=== PATIENT | female | born 1975 | race Caucasian/White ===

== ENCOUNTER → 2018-02-23 08:59 | Outpatient (CLI) | payer OTHER, SELFPAY ==
[2018-02-23 11:01] LABS: HCT 36.3 % (36.0-46.0); Mean Corp. HGB Concentration 33.1 g/dL (32.0-36.0); Mean Corpuscular Hemoglobin 26.8 pg (27.0-33.0); Platelet Count 359 x1000/uL (130-400); RBC 4.48 m/cumm (4.00-5.20); RBC Distribution Width 15.5 % (11.7-14.6); White Blood Cell Count 8.11 k/cumm (4.4-10.8)
[2018-02-23 11:03] LABS: CREATININE 0.75 mg/dL (0.55-1.02); Potassium 4.2 mmol/L (3.5-5.1)
[2018-02-23 11:11] LABS: Hemoglobin A1C 7.2 % (4.5-6.2)
== END ==
PROVIDERS: PCP Family Medicine; Visit Provider Family Medicine
DX: D64.9 Anemia, unspecified (principal); I10 Essential (primary) hypertension
CPT/HCPCS: 36415; 85027; 82565; 83036; 84132

== ENCOUNTER 2018-04-06 00:57 | Outpatient (CLI) | payer OTHER, SELFPAY ==
--- NOTE | 2018-04-06 14:42 | DI.MRI_ITS ---
SYMPTOMS/DIAGNOSIS: CHRONIC HEADACHE, R51, ? IDIOPATHIC INTRACRANIAL HYPERTENSION MRI OF THE BRAIN: Comparison is made with March,. T2 sagittal, T1, T2, FLAIR diffusion axial and gradient-echo axial sequences were performed. No intracranial hemorrhage, mass or infarct is seen. The ventricles are normal in size. There are no abnormal high signal lesions in the white matter. The vascular flow voids appear intact. The orbits and pituitary are unremarkable. Mucus retention cyst is seen at the floor of the left maxillary sinus. IMPRESSION: Negative MRI of the brain.
== END 2018-04-06 01:17 ==
PROVIDERS: PCP Family Medicine; Visit Provider Nurse Practitioner Adult Health
DX: R51 Headache (principal)
CPT/HCPCS: 70551

== ENCOUNTER 2018-08-29 09:19 | Outpatient (CLI) | payer OTHER, SELFPAY ==
[2018-08-29 11:03] LABS: Hemoglobin A1C 7.6 % (4.5-6.2)
[2018-08-29 11:09] LABS: Alkaline Phosphatase 108 U/L (46-116)
== END 2018-08-29 09:39 ==
PROVIDERS: PCP Family Medicine; Visit Provider Family Medicine
DX: E11.9 Type 2 diabetes mellitus without complications (principal); K74.3 Primary biliary cirrhosis
CPT/HCPCS: 36415; 83036; 84075

== ENCOUNTER 2019-01-22 10:13 | Outpatient (CLI) | payer OTHER, SELFPAY ==
[2019-01-22 11:09] LABS: HCT 37.3 % (36.0-46.0); HGB 11.9 g/dL (12.0-15.5); Mean Corp. HGB Concentration 31.9 g/dL (32.0-36.0); Mean Corpuscular Hemoglobin 24.4 pg (27.0-33.0); Mean Corpuscular Volume 76.6 fL (80-95); Mean Platelet Volume 9.6 fL (8.0-11.0); Platelet Count 370 x1000/uL (130-400); RBC 4.87 m/cumm (4.00-5.20); RBC Distribution Width 17.3 % (11.7-14.6); White Blood Cell Count 6.23 k/cumm (4.4-10.8)
[2019-01-22 12:01] LABS: ALT 30 U/L (12-78); AST 15 U/L (15-37); Albumin 3.8 g/dL (3.4-5.0); Alkaline Phosphatase 168 U/L (46-116); Anion Gap 12.1 mmol/L (3-11); BUN 9 mg/dL (7-18); Bilirubin, Total 0.3 mg/dL (0.2-1.0); CO2 24.9 mmol/L (21.0-32.0); CREATININE 0.64 mg/dL (0.55-1.02); Calcium 8.9 mg/dL (8.5-10.1); Chloride 102 mmol/L (98-107); Glucose 133 mg/dL (70-100); Magnesium 1.8 mg/dL (1.8-2.4); Potassium 4.2 mmol/L (3.5-5.1); Sodium 139 mmol/L (136-145); TSH 1.48 uIU/mL (0.36-3.74)
== END 2019-01-22 10:33 ==
PROVIDERS: PCP Family Medicine; Visit Provider Family Medicine
DX: E11.9 Type 2 diabetes mellitus without complications (principal); I10 Essential (primary) hypertension
CPT/HCPCS: 36415; 80053; 85027; 83735; 84443

== ENCOUNTER 2019-03-20 09:46 | Outpatient (CLI) | payer OTHER, SELFPAY ==
[2019-03-20 12:36] LABS: HCT 37.4 % (36.0-46.0); HGB 11.8 g/dL (12.0-15.5); Mean Corp. HGB Concentration 31.6 g/dL (32.0-36.0); Mean Corpuscular Hemoglobin 23.8 pg (27.0-33.0); Mean Corpuscular Volume 75.6 fL (80-95); Mean Platelet Volume 10.4 fL (8.0-11.0); Platelet Count 354 x1000/uL (130-400); RBC 4.95 m/cumm (4.00-5.20); RBC Distribution Width 17.6 % (11.7-14.6); White Blood Cell Count 7.24 k/cumm (4.4-10.8)
[2019-03-20 12:51] LABS: Alkaline Phosphatase 217 U/L (46-116); Calculated LDL 93 mg/dL; Cholesterol 160 mg/dL (50-200); HDL Cholesterol 47 mg/dL (40-60); Triglyceride 100 mg/dL (30-150)
[2019-03-20 13:29] LABS: Hemoglobin A1C 6.1 % (4.5-6.2)
[2019-03-20 14:28] LABS: Iron 25 ug/dL (50-175); Total Iron Binding Capacity 367 ug/dL (250-450); Transferrin Sat 7 % (15-50)
[2019-03-20 14:41] LABS: Ferritin 16 ng/mL (8-388)
== END 2019-03-20 10:06 ==
PROVIDERS: PCP Family Medicine; Visit Provider Family Medicine
DX: E11.9 Type 2 diabetes mellitus without complications (principal); K74.3 Primary biliary cirrhosis; R42 Dizziness and giddiness; D64.9 Anemia, unspecified
CPT/HCPCS: 36415; 80061; 85027; 82728; 83036; 83540; 83550; 84075

== ENCOUNTER 2019-03-27 12:53 | Emergency (ER) | payer OTHER, SELFPAY ==
[2019-03-27 12:59] VITALS: BP 141/81; PULSE 92; RESP 18; TEMP 36.5; O2SAT 99
[2019-03-27 13:03] VITALS: RESP 18
--- NOTE | 2019-03-27 13:20 | W.ED.GENAD ---
Discharge Plan Disposition Patient Disposition: HOME Condition: Good Discharge Details Chief Complaint: Dizzy/Sync Clinical Impression: Fatigue, Acute dehydration Primary Care Provider: Dom Persaud ED Provider: Min Gonzalez Home Meds and New Rx's Prescriptions: No Action bupropion HCl [Wellbutrin SR] 150 mg tablet sustained-release 12 hr 75 - 150 mg PO BID RF: 0 omega-3 fatty acids [Fish Oil Concentrate] 1,000 mg capsule 1,000 mg PO DAILY RF: 0 Central-Johanna Select 1 EACH tablet 1 ea PO DAILY RF: 0 (DME) lancets [OneTouch UltraSoft Lancets] 1 EACH misc 1 ea Miscellaneous 3xaday Qty: 100 RF: 6 (DME) Flash Glucose Scanning [place] [Freestyle Cam [place]] 1 EACH EACH Miscellaneous TID Qty: 1 RF: 0 ONETOUCH ULTRA TEST STRIPS 1 EACH strip 1 ea Miscellaneous 3x a day Qty: 100 RF: 6 simvastatin [Zocor] 10 mg tablet 10 mg PO HS Qty: 90 RF: 4 ursodiol 300 mg capsule 600 mg PO BID Qty: 360 RF: 3 Jardiance 10 mg tablet 10 mg PO DAILY Qty: 30 RF: 11 levothyroxine [Synthroid] 100 mcg tablet 100 mcg PO DAILY Qty: 90 RF: 4 (DME) pen needle, diabetic 31 gauge x 1/3 needle 1 pen Sub-Q QID Qty: 120 RF: 11 (DME) FreeStyle Cam 14 Day Sensor kit See Dose Instructions .ROUTE .MEDSUPPLY Qty: 2 RF: 11 esomeprazole magnesium [Nexium] 40 mg capsule,delayed release(DR/EC) 40 mg PO BID Qty: 180 RF: 3 metformin 1,000 mg tablet 500 mg PO BID Qty: 180 RF: 3 Discharge Instructions Instructions: Dehydration (ED), Fatigue (ED) Additional Instructions: At this time we do not see any signs of life-threatening anemia, cardiac disease, severe electrolyte abnormality, or other significant life-threatening concern. However I do feel that dehydration is certainly a causative agent for your symptoms. There may be other factors involved, including stress, viruses, and may be causing her symptoms. Please continue to drink 10 to 12 cups of water per day, follow-up closely with your PCP. If you notice any worsening of your symptoms, or any new symptoms such as vomiting, diarrhea, fever, chills, shortness of breath, chest pain, numbness, weakness, or fainting , please return immediately to the emergency department for reevaluation. Please follow up with your primary care provider as soon as possible for reassessment and reevaluation. As always, it was a pleasure participating in your medical care today. Referrals: Dom Persaud [Primary Care Provider] - Medical Decision Making This is a pleasant 44-year-old female with past medical history of diabetes, previous anemia, previous DVT PE not on anticoagulation secondary to them being provoked. As well as a 9 cm mass on her liver which she has surgery scheduled to remove it. She presents today for evaluation of mild confusion fatigue and dizziness. No room spinning sensation, no trauma. Symptoms are generalized and nonspecific. She states that she does not feel like she is on her again, she feels lightheaded when she does all activities. She denies any significant chest pain or severe shortness of breath. No neck pain or neck stiffness not, no clinical evidence of meningitis or encephalitis. She states that her current symptoms are similar to when she was anemic in the past however she did have recent blood work which was relatively benign. Physical and neurologic exam are notably benign, she does have significantly dry mucous membranes, but no other significant abnormalities. Differential includes infectious etiology, electrolyte abnormality, elevated ammonia. We will get a CT scan to rule out acute process or mass, we will rehydrate, and reassess. 3:[address] scan of the head is returned negative for any acute process, bleed or mass per radiology. Laboratory work-up is returned unremarkable, no white count, hemoglobin stable, VBG normal no CO2 retention, electrolytes normal renal function normal, mild ketones in urinalysis, ammonia and troponin normal. TSH normal. No evidence of urinary tract infections. Salicylates and acetaminophen and alcohol levels normal. The patient does not heat her house with any combustion device, the use heat pump, no risk for carbon monoxide. Signs and symptoms inconsistent with this. At this time the patient is feeling better after rehydration. With no acute life-threatening etiology being noted on work-up or imaging I do feel that she can be safely discharged. Signs and symptoms may be secondary to mild dehydration versus virus, uncertain exactly. With a stable hemoglobin compared to her baseline, I do not feel that any additional work-up is needed in this in the emergent setting, but the patient should follow-up closely with her PCP. We discussed red flags which to return. I have extensively reviewed the treatment plan and discharge instructions with the patient and their family. I have addressed all patient concerns at this time. The patient and family was made aware of what symptoms to monitor for that would warrant a return to the emergency department. Discussed the plan with the patient and family, they demonstrate verbal understanding and agreement with our assessment and plan at this time. EKG 13: 05 Rate 76, intervals normal, sinus rhythm, no significant ST elevations or depressions, there is a single inverted T wave in V1. No significant Q waves. No evidence of STEMI FINDINGS: Ventricles and Extra axial spaces: Normal in size and morphology for the patient's age. Hemorrhage: None. Cerebral parenchyma: Normal. Midline shift: None. Brainstem/Cerebellum: Normal. Calvarium: Normal. Visualized Paranasal sinuses/Mastoids: There is a small mucous retention cyst or polyp of the left maxillary sinus. IMPRESSION: No acute intracranial process. DATA REPOSITORY: All CT scans at this facility are submitted to the National Radiology Data Registry (NRDR) Dose Index Registry (DIR) with the [employer] (ACR). RADIATION OPTIMIZATION: All CT scans at this facility use at least one of these dose optimization techniques: automated exposure control; mA and/or kV adjustment per patient size (includes targeted exams where dose is matched to clinical indication); or iterative reconstruction. HPI General Date/Time Provider Initiated Documentation: 03/27/19 13:06. HPI Narrative: This is a 44-year-old female with a past medical history of a 9 cm mass on her liver which she is scheduled to get removed, previous PE and DVT secondary to estrogen use, hypertension, hypothyroidism, and anemia. She presents today for fatigue and mild confusion. Patient states that for the last week she has been dizzy, felt like she was not on her a gain, notably fatigued with any activity, and had atypical mentation. She denies any recent falls, traumas, or significant changes in medication. She is not on any blood thinners. She denies any vomiting, diarrhea, chest pain, shortness of breath, arm neck or shoulder pain, numbness or tingling, trauma to the head, dysuria, alcohol or illicit drug use. She states that she feels similar to this when she was anemic last. She denies any other complaints at this time. No other modifying factors. Related Data Home Medications Medication Instructions Recorded Confirmed multivitamin with iron-mineral 1 ea PO DAILY 03/04/16 03/27/19 [Central-Johanna Select] lancets [Onetouch Lancets] #100 ea 12/16/16 03/20/19 omega-3 fatty acids 1,000 mg 1,000 mg PO DAILY 03/26/18 03/27/19 capsule simvastatin 10 mg tablet 10 mg PO HS #90 tab-cap 03/29/18 03/27/19 ursodiol 300 mg capsule 600 mg PO BID #360 tab-cap 03/29/18 03/27/19 empagliflozin 10 mg tablet 10 mg PO DAILY #30 tab 08/27/18 03/27/19 levothyroxine 100 mcg tablet 100 mcg PO DAILY #90 tab 08/27/18 03/27/19 pen needle, diabetic 31 gauge x #120 pen 08/27/18 03/20/19 1 flash glucose sensor #2 each 11/16/18 03/20/19 esomeprazole magnesium 40 mg 40 mg PO BID #180 cap 01/22/19 03/27/19 capsule,delayed release metformin 1,000 mg tablet 500 mg PO BID #180 tab-cap 03/08/19 03/27/19 bupropion HCl 150 mg tablet,12 hr 75 - 150 mg PO BID tab 03/20/19 03/27/19 sustained-release Previous Rx's Medication Instructions Recorded simvastatin 10 mg tablet 10 mg PO HS #90 tab-cap 03/29/18 ursodiol 300 mg capsule 600 mg PO BID #360 tab-cap 03/29/18 empagliflozin 10 mg tablet 10 mg PO DAILY #30 tab 08/27/18 levothyroxine 100 mcg tablet 100 mcg PO DAILY #90 tab 08/27/18 pen needle, diabetic 31 gauge x #120 pen 08/27/18 13 flash glucose sensor #2 each 11/16/18 esomeprazole magnesium 40 mg 40 mg PO BID #180 cap 01/22/19 capsule,delayed release metformin 1,000 mg tablet 500 mg PO BID #180 tab-cap 03/08/19 Allergies Allergy/AdvReac Type Severity Reaction Status Date / Time ethinyl estradiol Allergy Intermediate LOCAL Unverified 03/27/19 13:09 SWELLING AND ITCHING etonogestrel Allergy Intermediate LOCAL Unverified 03/27/19 13:09 SWELLING /ITCHY amoxicillin AdvReac Intermediate GI UPSET Unverified 03/27/19 13:09 Penicillins AdvReac Unknown NAUSEA Unverified 03/27/19 13:09 General Stated Complaint: Dizzy/Sync MONALISA: 3 Review of Systems Review of Systems ROS Unobtainable: All systems reviewed & are unremarkable except as noted in HPI and below PFSH Family History (Updated 03/20/19 @ 12:18 by Rell Goyal) Father Diabetes MD (myocardial infarction) Heart disease Hyperlipidemia Hypertension Mother Cardiac arrhythmia Brother Depression Diabetes Maternal Grandfather , age 79 Heart disease Hyperlipidemia Hypertension Stroke Paternal Grandfather , age 82 Depression Diabetes Heart disease Hyperlipidemia Hypertension Maternal Grandmother Depression Heart disease Hypertension Stroke Paternal Grandmother , age 79 Depression Diabetes Heart disease Hyperlipidemia Hypertension Stroke Social History (Updated 03/20/19 @ 12:12 by Rell Goyal) Smoking/Tobacco Use Status: Never Second Hand Exposure: No Alcohol Intake: current Alcohol Intake frequency: a few times a month Drug use: Never Substance use type: does not use Adopted: No Caregiver/Support person: No Foster care: No Household members: friend(s) Housing: house Number of Children: 0 Communication Needs: None Do you need help understanding health information?: Rarely 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 Pets and animals: Yes Pets and animals: cat(s) Sexually active: No Do you think of yourself as: straight/heterosexual Current gender identity: female What is your relationship status?: How often do you talk on the phone with friends or family?: three or more times per week How often do you get together with friends or relatives?: three or more times per week How often do you attend buddhist or congregation services?: 4 or more times per year Do you belong to any clubs or organized social groups?: no Panel score (0-1 are the most socially isolated patients): 2 What type of physical activity do you participate in: walking Duration: 30-45 minutes/day Frequency: 3-4 times per week Angela/Mosque: Restorationism Special angela needs: No Seatbelt use: always Helmet use: Yes Helmet use: always Drive intox or ride w/intox shuttle van driver: No Do you feel safe at home: Yes Do you feel safe in your relationship?: Yes Female Reproductive History Menstrual control method: none (Patient thought that the endometrial ablation would provide contraception. She is not sexually active) Exam Narrative Exam Narrative: 1.Const: Well-nourished, Well-developed, appearing stated age 2.Eyes: PERRL, no conjunctival injection, and symmetrical lids. 3.ENT: Atraumatic external nose and ears. Notably dry MM. Neck: Symmetric, trachea midline, No thyromegaly. Patient demonstrates good movement of cervical neck. There is no nuchal rigidity, no nuchal tenderness. Patient is able to flex the neck without any difficulty or significant pain. Negative Kernig's and Brudzinski sign. 4.CVS: +S1/S2, No murmurs or gallops. Peripheral pulses 2+ and equal in all extremities. Brisk capillary refill in all extremities. 5.RESP: Unlabored respiratory effort. Clear to auscultation bilaterally. No wheezes rales or rhonchi 6.GI: Soft, Nontender/Nondistended, No hepatosplenomegaly. No guarding or rebound. 7.MSK: Normocephalic/Atraumatic, Extremities w/o deformity or ttp No cyanosis or clubbing, Normal movement of all extremities. No evidence of asterixis 8.Skin: Warm, Dry. No rashes or lesions. 9.Neuro: surgical services asst II-XII grossly intact. Sensation grossly intact, no focal neurologic deficits. Cerebellar function testing is normal. The patient demonstrates a normal hints exam with no findings concerning for a central event. No vertical nystagmus. The head impulse test is negative for any significant central abnormality. Normal test of skew. No suggestion of a central cerebellar event. All 6 cardinal planes of vision are fully intact. No evidence of rotatory or vertical nystagmus. The patient demonstrated a normal eahees-rdeo-ysatml, good dexterity. There was no evidence of dysdiadochokinesia. Patient was able to ambulate without difficulty. There was no wide-based gait. Romberg, and vclh-gq-bmqe are both normal on testing. Sensation was intact bilaterally as well as muscle strength bilaterally for all extremities. Patient was able to verbalize butter cup with no slurring, or miss pronunciation. 10.Psych: (AAO) x3. Appropriate mood and affect Course Vital Signs Vital signs: Vital Signs Temperature 36.5 C 03/27/19 12:59 Pulse 92 H 03/27/19 12:59 Respiratory Rate 18 03/27/19 12:59 Blood Pressure 141/81 H 03/27/19 12:59 Pulse Oximetry 99 03/27/19 12:59 Temperature 36.5 C 03/27/19 12:59 Temperature Source Temporal Artery Scan 03/27/19 12:59 Pulse 92 H 03/27/19 12:59 Respiratory Rate 18 03/27/19 13:03 Respiratory Effort Non-Labored 03/27/19 13:03 Respiratory Depth Normal 03/27/19 13:03 Respiratory Pattern Normal 03/27/19 13:03 Blood Pressure 141/81 H 03/27/19 12:59 Pulse Oximetry 99 03/27/19 12:59 Oxygen Delivery Method Room Air 03/27/19 12:59 Oxygen Flow Rate 0 03/27/19 12:59
[2019-03-27] MEDS: Normal Saline 1,000 ML 1000 ML IV (13:34)
[2019-03-27 13:40] LABS: BE (Venous) -0.3 mmol/L (-3-3); HCO3 (Venous) 25 mmol/L (22-28); O2 Sat (Venous) 50 % (70-80); TCO2 (Venous) 23 mmol/L (22-29); pCO2 (Venous) 42 mm/Hg (34-47); pH (Venous) 7.38 (7.32-7.43); pO2 (Venous) 30 mm/Hg (28-44)
[2019-03-27 13:41] LABS: Abs Immature Grans 0.02 k/cumm (0.0-0.09); Absolute Basophil Count 0.03 k/cumm (0.0-0.2); Absolute Eosinophil Count 0.15 k/cumm (0.0-0.7); Absolute Lymphocyte Count 2.03 k/cumm (1.2-3.4); Absolute Monocyte Count 0.43 k/cumm (0.11-0.7); Absolute Neutrophil Count 5.05 k/cumm (1.2-6.7); Basophils % 0.4; Eosinophils % 1.9; HCT 37.8 % (36.0-46.0); HGB 11.9 g/dL (12.0-15.5); Immature Grans % 0.3; Lymphocytes % 26.3; Mean Corp. HGB Concentration 31.5 g/dL (32.0-36.0); Mean Corpuscular Hemoglobin 23.5 pg (27.0-33.0); Mean Corpuscular Volume 74.6 fL (80-95); Mean Platelet Volume 9.7 fL (8.0-11.0); Monocytes % 5.6; Neutrophils % 65.5; Platelet Count 390 x1000/uL (130-400); RBC 5.07 m/cumm (4.00-5.20); RBC Distribution Width 17.4 % (11.7-14.6); White Blood Cell Count 7.71 k/cumm (4.4-10.8)
[2019-03-27 13:53] LABS: Ammonia < 10 umol/L (11-32)
[2019-03-27 14:04] LABS: ALT 20 U/L (14-59); AST 11 U/L (15-37); Albumin 4.1 g/dL (3.4-5.0); Alkaline Phosphatase 212 U/L (46-116); Anion Gap 10.9 mmol/L (3-11); BUN 17 mg/dL (7-18); Bilirubin, Total 0.3 mg/dL (0.2-1.0); CO2 26.1 mmol/L (21.0-32.0); CREATININE 0.84 mg/dL (0.55-1.02); Calcium 9.3 mg/dL (8.5-10.1); Chloride 101 mmol/L (98-107); Glucose 136 mg/dL (70-100); Potassium 3.8 mmol/L (3.5-5.1); Sodium 138 mmol/L (136-145); Total Protein 8.1 g/dL (6.4-8.2)
[2019-03-27 14:05] LABS: Bilirubin Negative (Negative); Blood Negative (Negative); Clarity Clear (Clear); Glucose 500 mg/dL (Negative); Ketones 40 mg/dL (Negative); Leukocyte Esterase Negative (Negative); Nitrite Negative (Negative); Specific Gravity 1.015 (1.005-1.025); Urobilinogen 0.2 EU/dL (Up TO 0.2)
[2019-03-27 14:06] LABS: ETHANOL BLOOD < 3.0 mg/dL (<3); Salicylate < 2.8 mg/dL (2.8-20.0); Troponin I < 0.05 ng/mL (0.00-0.06)
[2019-03-27 14:07] LABS: Acetaminophen < 2 ug/mL (10-30)
[2019-03-27 14:15] LABS: Diff Comment RBC Morph Reviewed; Microcytosis 2+
--- NOTE | 2019-03-27 14:30 | DI.CT_ITS ---
EXAM: CT HEAD WO CLINICAL HISTORY: confused, fatigued, slightly altered. TECHNIQUE: Imaging Protocol: Axial computed tomography images with coronal and sagittal reformatted images were created and reviewed COMPARISON: MR brain wo from 04/06/2018 FINDINGS: Ventricles and Extra axial spaces: Normal in size and morphology for the patient's age. Hemorrhage: None. Cerebral parenchyma: Normal. Midline shift: None. Brainstem/Cerebellum: Normal. Calvarium: Normal. Visualized Paranasal sinuses/Mastoids: There is a small mucous retention cyst or polyp of the left ma xillary sinus. IMPRESSION: No acute intracranial process. DATA REPOSITORY: All CT scans at this facility are submitted to the National Radiology Data Registry (NRDR) Dose Index Registry (DIR) with the [employer] (ACR). RADIATION OPTIMIZATION: All CT scans at this facility use at least one of these dose optimization te chniques: automated exposure control; mA and/or kV adjustment per patient size (includes targeted exa ms where dose is matched to clinical indication); or iterative reconstruction.
[2019-03-27 15:21] VITALS: BP 123/74; PULSE 70; RESP 14; TEMP 37.1; O2SAT 98
== END 2019-03-27 15:24 | disposition home or self-care (01) ==
PROVIDERS: Emergency Provider Student in an Organized Health Care Education/Training Program; PCP Family Medicine
DX: R53.83 Other fatigue (principal); E86.0 Dehydration; I10 Essential (primary) hypertension; E11.9 Type 2 diabetes mellitus without complications; Z79.84 Long term (current) use of oral hypoglycemic drugs
CPT/HCPCS: 36415; 80053; 81025; 82805; 96360; 96361; 99284; 70450; 80320; 80329; 81003; 82140; 84443; 84484; 85025

== ENCOUNTER 2019-07-18 01:31 | Outpatient (CLI) | payer OTHER, SELFPAY ==
--- NOTE | 2019-07-18 13:35 | DI.MAMMO_ITS ---
EXAM: MG MAMMO DIAGNOSTIC BI AND US BREAST LT LIMITED CLINICAL HISTORY: RAISED BREAST TISSUE ALONG BRA LINE, L BREAST MASS, N63.20. TECHNIQUE: Craniocaudal and mediolateral oblique Full Field Digital Mammography views of the left br east with Computer Aided Diagnosis followed by Tomosynthesis and left breast ultrasound. COMPARISON: No priors for comparison. FINDINGS: Mammography/Tomosynthesis: Masses/Architectural Distortion: None seen. Microcalcifications: No suspicious pleomorphic-type are seen. Skin Thickening/Nipple Retraction: None. Left breast US: Echotexture: Normal appearance of the glandular tissue. Shadowing: No suspicious foci. Cyst: None. Solid lesions: None seen. Ductal dilation: None. IMPRESSION: 1. No evidence of malignancy is noted. 2. Unless there is more urgent need, follow-up screening mammography is recommended, as per [employer] [employer] guidelines. ACR BI-RAD Category- 1 Negative Breast Density - Category B - Scattered areas of fibroglandular density Findings were discussed with the patient on the date of the examination. A negative radiographic report should not delay biopsy if a dominant or clinically suspicious mass is present. Up to ten percent of cancers are not identified on mammography. A negative report may reinforce clinical impression. Adenosis and dense breasts may obscure an underlying neoplasm. False positive reports average 6 to 10%. Patient will receive a letter notifying them of these results.
== END 2019-07-18 01:51 ==
PROVIDERS: PCP Family Medicine; Visit Provider Nurse Practitioner Women's Health
DX: N63.20 Unspecified lump in the left breast, unspecified quadrant (principal)
CPT/HCPCS: 76642; 77062; 77066; G0279

== ENCOUNTER 2020-04-15 02:55 | Outpatient (CLI) | payer OTHER, SELFPAY ==
[2020-04-15 11:05] LABS: Abs Immature Grans 0.04 10^3/uL (0.0-0.06); Absolute Basophil Count 0.05 10^3/uL (0.0-0.2); Absolute Eosinophil Count 0.15 10^3/uL (0.0-0.7); Absolute Lymphocyte Count 2.45 10^3/uL (1.2-3.4); Absolute Monocyte Count 0.43 10^3/uL (0.1-0.8); Basophils % 0.6; Eosinophils % 1.7; HCT 35.9 % (36.0-46.0); HGB 11.2 g/dL (11.2-15.7); Immature Grans % 0.5; Lymphocytes % 27.8; MCH 23.9 pg (27.0-33.0); MCHC 31.2 % (32.0-36.0); MCV 76.7 fL (80-95); Monocytes % 4.9; Neutrophils % 64.5; Nucleated RBC 0 %; Platelet Count 335 10^3/uL (130-400); RBC 4.68 10^6/uL (3.93-5.22); RDW 15.5 % (11.7-14.6); RDW-SD 42.3 fL; WBC 8.82 10^3/uL (4.4-10.8)
[2020-04-15 11:30] LABS: Prothrombin Time 9.9 sec (9.3-11.0)
[2020-04-15 11:38] LABS: ALT 24 U/L (14-59); AST 14 U/L (15-37); Albumin 3.9 g/dL (3.4-5.0); Alkaline Phosphatase 73 U/L (46-116); Anion Gap 10.7 mmol/L (3-11); BUN 12 mg/dL (7-18); Bilirubin, Total 0.3 mg/dL (0.2-1.0); CO2 23.3 mmol/L (21.0-32.0); CREATININE 0.83 mg/dL (0.55-1.02); Calcium 8.7 mg/dL (8.5-10.1); Chloride 99 mmol/L (98-107); Glucose 266 mg/dL (74-106); Potassium 4.8 mmol/L (3.5-5.1); Sodium 133 mmol/L (136-145); Total Protein 7.4 g/dL (6.4-8.2)
== END 2020-04-15 03:15 ==
PROVIDERS: PCP Family Medicine; Visit Provider Internal Medicine
DX: K74.3 Primary biliary cirrhosis (principal)
CPT/HCPCS: 36415; 80053; 85025; 85610

== ENCOUNTER 2021-04-27 02:26 | Outpatient (CLI) | payer OTHER, SELFPAY ==
[2021-04-27 09:55] LABS: Abs Immature Grans 0.03 10^3/uL (0.0-0.06); Absolute Basophil Count 0.06 10^3/uL (0.0-0.2); Absolute Eosinophil Count 0.19 10^3/uL (0.0-0.7); Absolute Lymphocyte Count 1.86 10^3/uL (1.2-3.4); Absolute Monocyte Count 0.36 10^3/uL (0.1-0.8); Absolute Neutrophil Count 4.68 10^3/uL (1.2-6.7); Basophils % 0.8; Eosinophils % 2.6; HCT 30.3 % (36.0-46.0); HGB 8.9 g/dL (11.2-15.7); Immature Grans % 0.4; Lymphocytes % 25.9; MCHC 29.4 % (32.0-36.0); MCV 71.6 fL (80-95); MPV 8.7 fL (8.0-11.0); Neutrophils % 65.3; Nucleated RBC 0 %; Platelet Count 299 10^3/uL (130-400); RBC 4.23 10^6/uL (3.93-5.22); RDW 18.1 % (11.7-14.6); RDW-SD 46.2 fL; WBC 7.18 10^3/uL (4.4-10.8)
[2021-04-27 10:12] LABS: Hemoglobin A1C 7.9 % (<5.7)
[2021-04-27 11:04] LABS: ALT 47 U/L (14-59); AST 35 U/L (15-37); Albumin 3.6 g/dL (3.4-5.0); Alkaline Phosphatase 60 U/L (46-116); Anion Gap 12.2 mmol/L (3-11); BUN 11 mg/dL (7-18); Bilirubin, Total 0.3 mg/dL (0.2-1.0); CO2 23.8 mmol/L (21.0-32.0); CREATININE 0.7 mg/dL (0.55-1.02); Calcium 8.7 mg/dL (8.5-10.1); Chloride 102 mmol/L (98-107); Glucose 182 mg/dL (74-106); Potassium 4.5 mmol/L (3.5-5.1); Sodium 138 mmol/L (136-145); Total Protein 6.9 g/dL (6.4-8.2)
[2021-04-27 11:06] LABS: Diff Comment RBC Morph Reviewed; Hypochromasia 1+; Microcytosis 2+; Polychromasia Present
== END 2021-04-27 02:27 | disposition home or self-care (01) ==
LOC: LBO 02:26
PROVIDERS: Internal Medicine; PCP Family Medicine; Visit Provider Family Medicine
DX: R73.9 Hyperglycemia, unspecified (principal)
CPT/HCPCS: 36415; 80053; 83036; 85025; 85610

== ENCOUNTER 2021-05-26 02:34 | Outpatient (CLI) | payer OTHER, SELFPAY ==
[2021-05-26 16:28] LABS: Ferritin 12 ng/mL (8-252); TSH (W/Ref FT4) 4.27 uIU/mL (0.36-3.74)
[2021-05-26 16:46] LABS: FREE T4 1.25 ng/dL (0.76-1.46)
[2021-05-26 17:00] LABS: Iron 30 ug/dL (50-170); Total Iron Binding Capacity 470 ug/dL (250-450); Transferrin Sat 6 % (15-50)
[2021-05-27 09:14] LABS: IgA 180 mg/dL (85-499)
[2021-05-27 17:04] LABS: Tissue Transglutaminase Ab IgA <1.2 U/mL
== END 2021-05-26 02:35 | disposition home or self-care (01) ==
LOC: LBO 02:34
PROVIDERS: Internal Medicine; PCP Family Medicine; Visit Provider Family Medicine
DX: D50.0 Iron deficiency anemia secondary to blood loss (chronic); E03.9 Hypothyroidism, unspecified
CPT/HCPCS: 36415; 82784; 82728; 83516; 83540; 83550; 84439; 84443

== ENCOUNTER 2021-08-02 03:55 | Outpatient (CLI) | payer OTHER, SELFPAY ==
[2021-08-02 12:50] LABS: Abs Immature Grans 0.03 10^3/uL (0.0-0.06); Absolute Basophil Count 0.07 10^3/uL (0.0-0.2); Absolute Eosinophil Count 0.25 10^3/uL (0.0-0.7); Absolute Lymphocyte Count 2.47 10^3/uL (1.2-3.4); Absolute Monocyte Count 0.36 10^3/uL (0.1-0.8); Basophils % 0.9; Eosinophils % 3.3; HCT 30.8 % (36.0-46.0); HGB 8.9 g/dL (11.2-15.7); Immature Grans % 0.4; Lymphocytes % 32.2; MCH 20.5 pg (27.0-33.0); MCHC 28.9 % (32.0-36.0); Monocytes % 4.7; Neutrophils % 58.5; Nucleated RBC 0 %; Platelet Count 315 10^3/uL (130-400); RBC 4.34 10^6/uL (3.93-5.22); RDW 18.5 % (11.7-14.6); RDW-SD 46.3 fL; WBC 7.68 10^3/uL (4.4-10.8)
[2021-08-02 13:19] LABS: Hemoglobin A1C 8.1 % (<5.7)
[2021-08-02 13:43] LABS: Iron 26 ug/dL (50-170); Total Iron Binding Capacity 469 ug/dL (250-450); Transferrin Sat 6 % (15-50)
[2021-08-02 13:52] LABS: Ferritin 10 ng/mL (8-252)
== END 2021-08-02 03:56 | disposition home or self-care (01) ==
LOC: LBO 03:56
PROVIDERS: PCP Family Medicine; Visit Provider Internal Medicine
DX: R73.9 Hyperglycemia, unspecified (principal); D50.0 Iron deficiency anemia secondary to blood loss (chronic)
CPT/HCPCS: 36415; 82728; 83036; 83540; 83550; 85025

== ENCOUNTER 2021-09-21 02:20 | Outpatient (RCR) | payer OTHER, SELFPAY ==
[2021-09-07] MEDS: IRON SUCROSE COMPLEX 200 MG in Normal Saline 100 ML 220 MG IVPB (12:45)
[2021-09-07] MEDS: Normal Saline Flush 10 ML SYR IVP (12:46)
[2021-09-15] MEDS: Normal Saline Flush 10 ML SYR IVP (12:23)
[2021-09-15] MEDS: IRON SUCROSE COMPLEX 200 MG in Normal Saline 100 ML 440 MG IVPB (12:23)
[2021-09-15 12:42] LABS: Abs Immature Grans 0.03 10^3/uL (0.0-0.06); Absolute Basophil Count 0.07 10^3/uL (0.0-0.2); Absolute Eosinophil Count 0.42 10^3/uL (0.0-0.7); Absolute Lymphocyte Count 2.63 10^3/uL (1.2-3.4); Absolute Monocyte Count 0.39 10^3/uL (0.1-0.8); Absolute Neutrophil Count 4.01 10^3/uL (1.2-6.7); Basophils % 0.9; Eosinophils % 5.6; HCT 34.8 % (36.0-46.0); HGB 10.2 g/dL (11.2-15.7); Immature Grans % 0.4; Lymphocytes % 34.8; MCH 21.6 pg (27.0-33.0); MCHC 29.3 % (32.0-36.0); MCV 73.6 fL (80-95); Monocytes % 5.2; Neutrophils % 53.1; Nucleated RBC 0 %; Platelet Count 334 10^3/uL (130-400); RBC 4.73 10^6/uL (3.93-5.22); RDW 20.3 % (11.7-14.6); RDW-SD 51.9 fL; WBC 7.55 10^3/uL (4.4-10.8)
[2021-09-15 13:04] LABS: Iron 72 ug/dL (50-170); Total Iron Binding Capacity 438 ug/dL (250-450); Transferrin Sat 16 % (15-50)
[2021-09-15 13:11] LABS: Ferritin 79 ng/mL (8-252)
[2021-09-21] MEDS: Normal Saline Flush 10 ML SYR IVP (12:15)
[2021-09-21] MEDS: IRON SUCROSE COMPLEX 200 MG in Normal Saline 100 ML 440 MG IVPB (12:27)
== END 2021-09-23 23:59 | disposition home or self-care (01) ==
LOC: INF 02:20
PROVIDERS: Internal Medicine; PCP Family Medicine; Visit Provider Family Medicine
DX: D50.0 Iron deficiency anemia secondary to blood loss (chronic) (principal)
CPT/HCPCS: 36415; 96365; 82728; 83540; 83550; 85025; J1756

== ENCOUNTER 2021-09-28 04:04 | Outpatient (RCR) | payer OTHER, SELFPAY ==
[2021-09-28] MEDS: IRON SUCROSE COMPLEX 200 MG in Normal Saline 100 ML 440 MG IVPB (12:12)
[2021-09-28] MEDS: Normal Saline Flush 10 ML SYR IVP (12:12)
== END 2021-10-23 23:59 | disposition home or self-care (01) ==
LOC: INF 04:04
PROVIDERS: PCP Family Medicine; Visit Provider Family Medicine
DX: D50.0 Iron deficiency anemia secondary to blood loss (chronic) (principal)
CPT/HCPCS: 96365; J1756

== ENCOUNTER 2021-10-14 11:46 | Outpatient (REF) | payer OTHER, SELFPAY ==
--- NOTE | 2021-10-14 08:45 | PAPFT_PTH ---
PATIENT: Randi Saini LOC: [facility] U#:[id number] AGE/SX: 46/F ROOM: RE10/14/[address]: Elsa Cortes : 1975 BED: DIS: 10/14/2021 SPEC #: [id number] RECD: 10/14/21 12:43 STATUS: ANALY REBeatris #: [id number] DEANNA: 10/14/21 08:[address]: Elsa Cortes DEPT: [facility] Cytology RECD BY: Lalitha Alexander ENTERED: 10/14/21 12:43 SP TYPE: PAPFT OTHR DR: Dom Persaud MD Tissues: 1 - CX/ENDOCX FOR PAP SMEARS Procedures: PAP THIN PREP/UVM Screening HPV DNA PROBE Comments: [id number]
== END 2021-10-14 11:47 | disposition home or self-care (01) ==
LOC: LBN 11:46
PROVIDERS: PCP Family Medicine; Visit Provider Obstetrics & Gynecology Gynecology
DX: Z12.4 Encounter for screening for malignant neoplasm of cervix (principal); Z11.51 Encounter for screening for human papillomavirus (HPV); R87.612 Low grade squamous intraepithelial lesion on cytologic smear of cervix (LGSIL)
CPT/HCPCS: 88142; 87624

== ENCOUNTER → 2021-11-16 02:12 | Outpatient (CLI) | payer OTHER, SELFPAY ==
--- NOTE | 2021-11-16 11:35 | DI.MAMMO_ITS ---
Exam(s) MAMMO SCREENING EXAM: MAMMO SCREENING CLINICAL HISTORY: screening TECHNIQUE: Mammograms were interpreted according to the usual protocol including computer analysis w RxRevu CAD system, tomosynthesis and C-view imaging. COMPARISON: FINDINGS: The breasts are of moderate density with fairly symmetrical distribution of fibroglandular tissue. N o dominant mass or clumped microcalcification is identified in either breast. The current examinatio n is compared with previous examinations including June 2019 and there has been no gross interval change in appearance in comparison with the prior studies. IMPRESSION: No specific evidence of malignancy at this time. Routine screening examinations are suggested at yea rly intervals in this age group according to the ACS ACR guidelines. BI-RADS Category 1 - Negative Breast Density - Category B - Scattered areas of fibroglandular density
== END ==
PROVIDERS: PCP Family Medicine; Visit Provider Obstetrics & Gynecology Gynecology
DX: Z12.31 Encounter for screening mammogram for malignant neoplasm of breast (principal)
CPT/HCPCS: 77063; 77067

== ENCOUNTER 2021-11-30 11:30 | Outpatient (CLI) | payer OTHER, SELFPAY ==
[2021-11-30 12:32] LABS: Abs Immature Grans 0.04 10^3/uL (0.0-0.06); Absolute Basophil Count 0.07 10^3/uL (0.0-0.2); Absolute Eosinophil Count 0.22 10^3/uL (0.0-0.7); Absolute Lymphocyte Count 2.03 10^3/uL (1.2-3.4); Absolute Monocyte Count 0.34 10^3/uL (0.1-0.8); Absolute Neutrophil Count 4.48 10^3/uL (1.2-6.7); Eosinophils % 3.1; HGB 12.1 g/dL (11.2-15.7); Immature Grans % 0.6; Lymphocytes % 28.3; MCH 27.2 pg (27.0-33.0); MCHC 32.7 % (32.0-36.0); MCV 83 fL (80-95); MPV 9.6 fL (8.0-11.0); Monocytes % 4.7; Neutrophils % 62.3; Platelet Count 273 10^3/uL (130-400); RBC 4.45 10^6/uL (3.93-5.22); RDW 16.8 % (11.7-14.6); RDW-SD 50.5 fL; WBC 7.18 10^3/uL (4.4-10.8)
[2021-11-30 12:57] LABS: Iron 61 ug/dL (50-170); Total Iron Binding Capacity 362 ug/dL (250-450); Transferrin Sat 17 % (15-50)
[2021-11-30 13:14] LABS: ALT 47 U/L (14-59); AST 27 U/L (15-37); Albumin 3.9 g/dL (3.4-5.0); Alkaline Phosphatase 61 U/L (46-116); Anion Gap 13.4 mmol/L (3-11); BUN 9 mg/dL (7-18); Bilirubin, Direct 0.1 mg/dL (0.0-0.2); Bilirubin, Total 0.4 mg/dL (0.2-1.0); CO2 24.6 mmol/L (21.0-32.0); CREATININE 0.7 mg/dL (0.55-1.02); Calcium 8.5 mg/dL (8.5-10.1); Chloride 102 mmol/L (98-107); Ferritin 55 ng/mL (8-252); Glucose 180 mg/dL (74-106); Potassium 3.9 mmol/L (3.5-5.1); Sodium 140 mmol/L (136-145); TSH (W/Ref FT4) 1.83 uIU/mL (0.36-3.74); Total Protein 7.1 g/dL (6.4-8.2); Vitamin B12 677 pg/mL (193-986)
[2021-12-02 05:30] LABS: Vitamin D 25 Total 31.5 ng/mL (30-100)
== END 2021-11-30 11:31 | disposition home or self-care (01) ==
LOC: LOS 11:30
PROVIDERS: PCP Family Medicine; Referring Provider Family Medicine; Visit Provider Family Medicine
DX: D64.9 Anemia, unspecified (principal); E03.9 Hypothyroidism, unspecified; R10.9 Unspecified abdominal pain; E11.9 Type 2 diabetes mellitus without complications; Z79.4 Long term (current) use of insulin; G72.89 Other specified myopathies; G40.909 Epilepsy, unspecified, not intractable, without status epilepticus; R42 Dizziness and giddiness; Z79.899 Other long term (current) drug therapy
CPT/HCPCS: 36415; 80053; 80076; 82306; 82607; 82728; 83540; 83550; 84443; 85025

== ENCOUNTER 2022-11-30 03:20 | Outpatient (CLI) | payer BC, SELFPAY ==
--- NOTE | 2022-11-30 08:15 | DI.MAMMO_ITS ---
Exam(s) MAMMO SCREENING EXAM: MAMMO SCREENING CLINICAL HISTORY: screening, Z12.39 TECHNIQUE: Bilateral full field digital CC and MLO mammographic images were obtained with 3D tomosyn thesis and utilizing computer aided detection (CAD). COMPARISON: Available for comparison. FINDINGS: Masses/Architectural Distortion: There is a stable well-circumscribed nodule in the posterior right b reast. No suspicious nodules are seen. No areas of architectural distortion are identified. Microcalcifications: No suspicious pleomorphic-type are seen. Skin Thickening/Nipple Retraction: None. IMPRESSION: 1. No significant interval change with no specific features of malignancy noted. 2. Unless there is more urgent need, screening mammography is recommended, as per [employer] guidelines. BI-RADS Category 2 - Benign Findings Breast Density - Category B - Scattered areas of fibroglandular density Breast density category C or D implies that the patient has dense breast tissue. Dense breast tissue is very common and is not abnormal but dense breast tissue can make it harder to find cancer on a ma mmogram. Also, dense breast tissue may increase their breast cancer risk. This information about the result of the mammogram report was provided to the patient to raise their awareness. Use this report when you speak with the patient about their risks for breast cancer, which includes their family hist ory. At that time, you may recommend for more screening tests (Ultrasound or MRI) as they might be us eful based on their risk. A negative radiographic report should not delay biopsy if a dominant or clinically suspicious mass is present. Up to ten percent of cancers are not identified on mammography. A negative report may reinforce clinical impression. Adenosis and dense breasts may obscure an underlying neoplasm. False positive reports average 6 to 10%. Patient will receive a letter notifying them of these results.
== END 2022-11-30 03:40 ==
LOC: DI 03:20
PROVIDERS: PCP Family Medicine; Visit Provider Family Medicine
DX: Z12.31 Encounter for screening mammogram for malignant neoplasm of breast (principal)
CPT/HCPCS: 77063; 77067

== ENCOUNTER 2022-12-21 11:44 | Outpatient (REF) | payer BC, SELFPAY ==
--- NOTE | 2022-12-21 11:30 | PAPFT_PTH ---
PATIENT: Randi Saiin LOC: [facility] U#:[id number] AGE/SX: 47/F ROOM: RE12/21/[address]: Kate Bean NP : 1975 BED: DIS: 12/21/2022 SPEC #: [id number] RECD: 12/21/22 12:59 STATUS: ANALY REBeatris #: [id number] DEANNA: 12/21/22 11:[address]: Kate Bean NP DEPT: [facility] Cytology RECD BY: Lalitha Alexander ENTERED: 12/21/22 12:59 SP TYPE: PAPFT OTHR DR: Dom Persaud MD Tissues: 1 - CX/ENDOCX FOR PAP SMEARS Procedures: PAP THIN PREP/UVM Screening HPV DNA PROBE Comments: [id number]
== END 2022-12-21 11:45 | disposition home or self-care (01) ==
LOC: LBN 11:44
PROVIDERS: PCP Family Medicine; Visit Provider Nurse Practitioner Women's Health
DX: Z11.51 Encounter for screening for human papillomavirus (HPV) (principal); R87.610 Atypical squamous cells of undetermined significance on cytologic smear of cervix (ASC-US)
CPT/HCPCS: 88142; 87624

== ENCOUNTER 2024-04-17 03:21 | Outpatient (CLI) | payer BC, SELFPAY ==
[2024-04-17 12:41] LABS: Abs Immature Grans 0.02 10^3/uL (0.0-0.06); Absolute Basophil Count 0.05 10^3/uL (0.0-0.2); Absolute Eosinophil Count 0.11 10^3/uL (0.0-0.7); Absolute Lymphocyte Count 1.95 10^3/uL (1.2-3.4); Absolute Neutrophil Count 3.64 10^3/uL (1.2-6.7); Basophils % 0.8 %; Eosinophils % 1.8 %; HCT 38.1 % (36.0-46.0); HGB 12.8 g/dL (11.2-15.7); Immature Grans % 0.3 %; Lymphocytes % 32.1 %; MCH 27.6 pg (27.0-33.0); MCHC 33.6 % (32.0-36.0); MCV 82 fL (80-95); MPV 9.2 fL (8.0-11.0); Monocytes % 4.9 %; Neutrophils % 60.1 %; Platelet Count 360 10^3/uL (130-400); RBC 4.64 10^6/uL (3.93-5.22); RDW-SD 41.2 fL; WBC 6.07 10^3/uL (4.4-10.8)
[2024-04-17 12:51] LABS: Prothrombin Time 10.4 sec (9.1-11.1)
[2024-04-17 12:59] LABS: ALT 25 U/L (14-59); AST 11 U/L (15-37); Alkaline Phosphatase 73 U/L (46-116); Anion Gap 10.5 mmol/L (3-11); BUN 9 mg/dL (7-18); CO2 27.5 mmol/L (21.0-32.0); CREATININE 0.7 mg/dL (0.55-1.02); Chloride 102 mmol/L (98-107); Estimated GFR 106.62 (mL/min/1.73m2); Glucose 146 mg/dL (74-106); Potassium 3.6 mmol/L (3.5-5.1); Sodium 140 mmol/L (136-145); Total Protein 7.7 g/dL (6.4-8.2)
[2024-04-17 13:09] LABS: TSH (W/Ref FT4) 1.71 uIU/mL (0.36-3.74)
== END 2024-04-17 03:22 | disposition home or self-care (01) ==
PROVIDERS: PCP Family Medicine; Visit Provider Internal Medicine
DX: E03.9 Hypothyroidism, unspecified (principal)
CPT/HCPCS: 36415; 80053; 82306; 84443; 84446; 84590; 85025; 85610

== ENCOUNTER 2024-08-29 09:36 | Emergency (ER) | payer OTHER, SELFPAY ==
[2024-08-29] VITALS (22 sets, daily range): BP systolic 130–155; BP diastolic 65–91; PULSE 77–95; RESP 11–33; O2SAT 97–100
--- NOTE | 2024-08-29 10:15 | DI.CT_ITS ---
Exam(s) CT ABDOMEN PELVIS W EXAM: CT ABDOMEN PELVIS W CLINICAL HISTORY: LUQ and LLQ pain. TECHNIQUE: Imaging Protocol: Axial computed tomography images with coronal and sagittal reformatted images were created and reviewed CONTRAST MATERIAL: Intravenous: Omnipaque-350 100cc Oral: None COMPARISON: CT CHEST FOR PULMONARY EMBOLUS from 10/05/[address] ABDOMEN PELVIS WO from 08/02/2021 FINDINGS: VISUALIZED LUNG BASES: No nodules nor pleural effusions evident. ABDOMEN: There is no ascites. There is no evidence of recurrence of the large anterior abdominal wall hernia which was evident on the prior CT scan of July 2021. There is no evidence of bowel obstruction, free air, nor abscess. LIVER: There are multiple surgical clips in the posterior aspect of right hepatic lobe again noted th jesus clips are in the region abnormal hypodensity in liver at this level but the contour of the liver appears unchanged at this level from previous. The liver is again noted to be somewhat enlarged. Th ere are no dilated intrahepatic ducts. GALLBLADDER/BILIARY: Is surgically absent. The biliary tree is not dilated. CBD diameter is upper n ormal. PANCREAS: No evidence of pancreatic mass nor dilatation of the pancreatic duct. SPLEEN: Spleen is not enlarged. No obvious intrasplenic lesions. Splenic and portal veins are paten t. ADRENALS: Left adrenal gland unremarkable. There is a small nodule in the right adrenal gland which is unchanged in size from 2021 and therefore most probably a benign adenoma. KIDNEYS:No cysts evident. No solid renal masses. No calculi nor hydronephrosis.. ABDOMINAL AORTA: Abdominal aorta is not enlarged. LYMPH NODES:There is no retroperitoneal nor paraaortic adenopathy. ABDOMINAL WALL: No evidence of significant anterior abdominal wall nor inguinal hernia. Subcutaneous air seen on the right side of the abdomen which is probably related to injection at this level. The re is no abscess. GI: There is no evidence of bowel obstruction. Large amount of fecal material is noted in the spleni c flexure of the colon and descending colon. The proximal half of the colon is collapsed. There is no significant diverticular disease. PELVIS: GI: No evidence of appendicitis.No evidence of sigmoid diverticulitis. LYMPH NODES: There is no intrapelvic nor inguinal adenopathy. REPRODUCTIVE: Uterus and ovaries appear age-appropriate. Small follicular cysts are noted in both ov ami. There are no concerning ovarian masses. URINARY BLADDER: No calculi nor obvious masses evident the pelvic ureters are not dilated. OSSEOUS: No fractures. No osseous lesions. Chronic disc space narrowing L5-S1 noted. No listhesis. IMPRESSION: 1. No evidence of recurrence of the anterior abdominal hernia which was present on the prior CT scan of July 2021. 2. Evidence of surgery in the right hepatic lobe again noted. Appearance is different than previous but this is because prior study was noninfused on the present study was contrast infused. Correlatio n with the prior surgical report and pathology report is recommended. 3. Small unchanged right adrenal nodule which is probably an adenoma. 4. Moderate amount of fecal material noted in the distal half of the colon. Proximal half the colon is mostly collapsed. Discussed by phone with ER provider 08/29/2024 at 1:20 p.m. RADIATION DOSE DELIVERED: 990.72mGy.cm Total DLP DATA REPOSITORY: All CT scans at this facility are submitted to the National Radiology Data Registry (NRDR) Dose Index Registry (DIR) with the [employer] (A[employer]). RADIATION OPTIMIZATION: All CT scans at this facility use at least one of these dose optimization te chniques: automated exposure control; mA and/or kV adjustment per patient size (includes targeted exa ms where dose is matched to clinical indication); or iterative reconstruction.
[2024-08-29 11:04] LABS: Bilirubin Negative (Negative); Blood Negative (Negative); Clarity Clear (Clear); Glucose Negative (Negative); Ketones Negative (Negative); Leukocyte Esterase Negative (Negative); Nitrite Negative (Negative); Urobilinogen 0.2 mg/dL (Up to 0.2); pH 5.5 (5-8)
[2024-08-29 11:54] LABS: Abs Immature Grans 0.05 10^3/uL (0.0-0.06); Absolute Basophil Count 0.07 10^3/uL (0.0-0.2); Absolute Eosinophil Count 0.12 10^3/uL (0.0-0.7); Absolute Lymphocyte Count 1.92 10^3/uL (1.2-3.4); Absolute Monocyte Count 0.35 10^3/uL (0.1-0.8); Absolute Neutrophil Count 6.04 10^3/uL (1.2-6.7); Basophils % 0.8 %; Eosinophils % 1.4 %; HCT 36.9 % (36.0-46.0); HGB 12.2 g/dL (11.2-15.7); Immature Grans % 0.6 %; Lymphocytes % 22.5 %; MCH 26.7 pg (27.0-33.0); MCHC 33.1 % (32.0-36.0); MCV 81 fL (80-95); MPV 9.1 fL (8.0-11.0); Monocytes % 4.1 %; Neutrophils % 70.6 %; Platelet Count 293 10^3/uL (130-400); RBC 4.57 10^6/uL (3.93-5.22); RDW 13.7 % (11.7-14.6); RDW-SD 40.3 fL; WBC 8.55 10^3/uL (4.4-10.8)
[2024-08-29] MEDS: Omnipaque 350 MG/ML 100 ML BTL IJ (12:16)
[2024-08-29] MEDS: Normal Saline - Diluent 50 ML VIAL IJ (12:17)
[2024-08-29 12:27] LABS: ALT 33 U/L (14-59); AST 18 U/L (15-37); Albumin 3.9 g/dL (3.4-5.0); Alkaline Phosphatase 72 U/L (46-116); Anion Gap 11.2 mmol/L (3-11); BUN 7 mg/dL (7-18); CO2 26.8 mmol/L (21.0-32.0); CREATININE 0.7 mg/dL (0.55-1.02); Chloride 102 mmol/L (98-107); Estimated GFR 106.62 (mL/min/1.73m2); Glucose 172 mg/dL (74-106); Lipase 46 U/L (<78); Magnesium 1.5 mg/dL (1.8-2.4); Potassium 4.2 mmol/L (3.5-5.1); Sodium 140 mmol/L (136-145); Total Protein 7.6 g/dL (6.4-8.2)
[2024-08-29 12:28] LABS: Troponin I < 4 ng/L (<or=51)
[2024-08-29] MEDS: Magnesium Oxide 400 MG TAB 800 MG PO (13:37)
[2024-08-29 14:04] LABS: Troponin I < 4 ng/L (<or=51)
--- NOTE | 2024-08-29 17:03 | W.ED.GENAD ---
Discharge Plan Disposition Patient Disposition: Home Condition: Stable Discharge Details Clinical Impression: Abdominal pain Primary Care Provider: Dom Persaud ED Provider: Lalitha Torres Home Meds and New Rx's Prescriptions: New magnesium 250 mg tablet 250 mg PO DAILY Qty: 10 0RF Continued (DME) Dexcom G6 Transmitter Device See Rx Instructions miscellaneous .MEDSUPPLY Qty: 1 0RF Rx Instructions: As directed metformin 500 mg tablet extended release 24 hr 500 - 1,000 mg PO BID Qty: 360 3RF Rx Instructions: 1000 mg AM, 500 mg PM 04/2024 simvastatin [Zocor] 10 mg tablet 10 mg PO HS Qty: 90 3RF Mounjaro 10 mg/0.5 mL pen injector 10 mg subcut QWEEK Patient Comments: now 7.5mg (DME) vitamin c Qty: 1 (DME) lancets [OneTouch UltraSoft Lancets] 1 EACH misc 1 ea Miscellaneous 3xaday Qty: 100 ONETOUCH ULTRA TEST STRIPS 1 EACH strip 1 ea Miscellaneous 3x a day Qty: 100 6RF Rx Instructions: Dx: E11.9 (DME) FreeStyle Precision Junior Strips Strip See Rx Instructions .ROUTE .MEDSUPPLY Qty: 100 6RF Rx Instructions: Test bid (DME) pen needle, diabetic 31 gauge x 1/3 needle 1 pen Sub-Q QID Qty: 100 3RF Rx Instructions: 31G X 5/16-B/D INSULIN PEN NEEDLE inject once/day levothyroxine [Synthroid] 100 mcg tablet 100 mcg PO DAILY Qty: 90 4RF Patient Comments: ran out, can't remember the last time she took it, never refilled it (DME) Dexcom G6 Sensor Device See Rx Instructions .MEDSUPPLY Qty: 3 11RF Rx Instructions: As directed bupropion HCl 75 mg tablet 75 mg PO .AM Qty: 90 3RF Rx Instructions: take with 150 mg in PM to equal 225 mg daily dosing. bupropion HCl [Wellbutrin SR] 150 mg tablet sustained-release 12 hr 150 mg PO QAM Qty: 90 3RF esomeprazole magnesium [Nexium] 40 mg capsule,delayed release(DR/EC) 40 mg PO BID Qty: 180 3RF ursodiol 300 mg capsule 600 mg PO BID Qty: 360 3RF venlafaxine 37.5 mg capsule,extended release 24hr 37.5 mg PO QHS Qty: 90 3RF Discharge Instructions Instructions: Low Magnesium Level, Abdominal Pain, Adult ED, Constipation, Adult ED Additional Instructions: Take magnesium supplement daily this will also help with bowel movements may take MiraLAX or prune/Metamucil daily to help with constipation you have several ovarian cysts, you may follow-up with your primary care physician for a pelvic ultrasound at your doctor's discretion I suspect that your discomfort with some stool that is located adjacent to the spleen likely causing some pain in this left upper quadrant If your pain returns or your symptoms were to change or worsen in any way please be reevaluated Referrals: Dom Persaud MD [Primary Care Provider] - 3 days Discharge Data Discharge Date/Time-TO BE ENTERED AT DEPARTURE: 08/29/24 13:46 HPI General Date/Time Provider Initiated Documentation: 08/29/24 10:21. HPI Narrative: The patient is a 49-year-old female presenting with left upper quadrant pain that started abruptly at work. She reports no history of similar symptoms in the past and no food consumption at the time of pain onset. The pain radiates through to her back. She has not vomited but feels intermittently nauseous. She reports no fever or chills. There are no urinary symptoms or blood in the urine. She reports no chance of . Related Data Home Medications ?Medication ?Instructions ?Recorded ?Confirmed lancets (OneTouch UltraSoft #100 ea 12/16/16 08/29/24 Lancets) vitamin c #1 ea 04/02/19 08/29/24 blood sugar diagnostic (FreeStyle #100 ea 05/17/19 08/29/24 Precision Junior Strips) blood-glucose transmitter (Dexcom #1 ea 03/15/23 08/29/24 G6 Transmitter device) pen needle, diabetic 31 gauge x #100 ea 03/23/23 08/29/2406/28 metformin 500 mg tablet,extended 500 - 1,000 mg (1 - 2 x 500 mg) PO 08/22/23 08/29/24 release 24 hr BID #360 tabs blood-glucose sensor (Dexcom G6 #3 ea 09/25/23 08/29/24 Sensor device) levothyroxine 100 mcg tablet 100 mcg PO DAILY #90 tabs 09/25/23 08/29/24 (Synthroid) bupropion HCl 150 mg tablet,12 hr 150 mg PO QAM #90 tabs 10/30/23 08/29/24 sustained-release (Wellbutrin SR) bupropion HCl 75 mg tablet 75 mg PO .AM #90 tabs 10/30/23 08/29/24 esomeprazole magnesium 40 mg 40 mg PO BID #180 caps 10/30/23 08/29/24 capsule,delayed release (Nexium) ursodiol 300 mg capsule 600 mg (2 x 300 mg) PO BID #360 11/22/23 08/29/24 tab-caps venlafaxine 37.5 mg 37.5 mg PO QHS #90 caps 04/04/24 08/29/24 capsule,extended release 24 hr simvastatin 10 mg tablet (Zocor) 10 mg PO HS #90 tab-caps 05/22/24 08/29/24 tirzepatide 10 mg/0.5 mL 10 mg subcut QWEEK 05/22/24 08/29/24 subcutaneous pen injector (Unique) magnesium 250 mg tablet 250 mg PO DAILY #10 tabs 08/29/24 Previous Rx's ?Medication ?Instructions ?Recorded blood sugar diagnostic (FreeStyle #100 ea 05/17/19 Precision Junior Strips) blood-glucose transmitter (Dexcom #1 ea 03/15/23 G6 Transmitter device) pen needle, diabetic 31 gauge x #100 ea 03/23/2306/28 metformin 500 mg tablet,extended 500 - 1,000 mg (1 - 2 x 500 mg) PO 08/22/23 release 24 hr BID #360 tabs blood-glucose sensor (Dexcom G6 #3 ea 09/25/23 Sensor device) levothyroxine 100 mcg tablet 100 mcg PO DAILY #90 tabs 09/25/23 (Synthroid) bupropion HCl 150 mg tablet,12 hr 150 mg PO QAM #90 tabs 10/30/23 sustained-release (Wellbutrin SR) bupropion HCl 75 mg tablet 75 mg PO .AM #90 tabs 10/30/23 esomeprazole magnesium 40 mg 40 mg PO BID #180 caps 10/30/23 capsule,delayed release (Nexium) ursodiol 300 mg capsule 600 mg (2 x 300 mg) PO BID #360 11/22/23 tab-caps venlafaxine 37.5 mg 37.5 mg PO QHS #90 caps 04/04/24 capsule,extended release 24 hr simvastatin 10 mg tablet (Zocor) 10 mg PO HS #90 tab-caps 05/22/24 magnesium 250 mg tablet 250 mg PO DAILY #10 tabs 08/29/24 Allergies Allergy/AdvReac Type Severity Reaction Status Date / Time ethinyl estradiol Allergy Intermediate LOCAL Verified 08/29/24 09:47 SWELLING AND ITCHING etonogestrel Allergy Intermediate LOCAL Verified 08/29/24 09:47 SWELLING /ITCHY amoxicillin AdvReac Intermediate GI UPSET Verified 08/29/24 09:47 Penicillins AdvReac Unknown NAUSEA Verified 08/29/24 09:47 General Stated Complaint: Abd Prob MONALISA: 3 Exam Narrative Exam Narrative: General Appearance: The patient is alert and oriented. Vital signs: Temperature is 37.0. HEENT: Within normal limits. Respiratory: Lungs are clear to auscultation. Cardiovascular: Heart rate and rhythm are regular. Gastrointestinal: Tenderness noted in the left upper quadrant of the abdomen upon palpation. No rebound or guarding. Skin: Warm and dry, no rash. Neurological: Normal. Course Vital Signs Vital signs: Vital Signs Pulse 84 08/29/24 09:43 Respiratory Rate 20 08/29/24 09:43 Blood Pressure 155/91 H 08/29/24 09:43 Pulse Oximetry 100 08/29/24 09:43 Pulse 82 08/29/24 13:00 Pulse 78 08/29/24 13:30 Respiratory Rate 15 08/29/24 13:30 Blood Pressure 130/69 08/29/24 13:30 Blood Pressure Mean 87 08/29/24 13:13 Blood Pressure Position Sitting 08/29/24 11:51 Pulse Oximetry 98 08/29/24 13:00 Oxygen Delivery Method Room Air 08/29/24 11:51 Oxygen Flow Rate 0 08/29/24 11:51 Pain Level 5 08/29/24 13:13 Lab/Test Results Lab/Test Results: Laboratory Tests Range/Units 08/29/24 08/29/24 08/29/24 10:44 11:45 11:45 WBC (4.4-10.8) 10^3/uL 8.55 RBC (3.93-5.22) 10^6/uL 4.57 Hgb (11.2-15.7) g/dL 12.2 Hct (36.0-46.0) % 36.9 MCV (80-95) fL 81 MCH (27.0-33.0) pg 26.7 L MCHC (32.0-36.0) % 33.1 RDW (11.7-14.6) % 13.7 Plt Count (130-400) 10^3/uL 293 MPV (8.0-11.0) fL 9.1 Immature Gran % % 0.6 Neutrophils % % 70.6 Lymphocytes % % 22.5 Monocytes % % 4.1 Eosinophils % % 1.4 Basophils % % 0.8 Nucleated RBC % (0.0-0.3) % 0.0 Absolute Neutrophils (1.2-6.7) 10^3/uL 6.04 Absolute Lymphocytes (1.2-3.4) 10^3/uL 1.92 Absolute Monocytes (0.1-0.8) 10^3/uL 0.35 Absolute Eosinophils (0.0-0.7) 10^3/uL 0.12 Absolute Basophils (0.0-0.2) 10^3/uL 0.07 Sodium (136-145) mmol/L 140 Potassium (3.5-5.1) mmol/L 4.2 Chloride (98-107) mmol/L 102 Carbon Dioxide (21.0-32.0) mmol/L 26.8 Anion Gap (3-11) mmol/L 11.2 H BUN (7-18) mg/dL 7 Creatinine (0.55-1.02) mg/dL 0.7 Est GFR (CKD-EPI 2020) (mL/min/1.73m2) 106.62 Glucose (74-106) mg/dL 172 H Calcium (8.5-10.1) mg/dL 9.0 Magnesium (1.8-2.4) mg/dL 1.5 L Total Bilirubin (0.2-1.0) mg/dL 0.30 AST (15-37) U/L 18 ALT (14-59) U/L 33 Alkaline Phosphatase (46-116) U/L 72 Troponin I (<or=51) ng/L < 4 Total Protein (6.4-8.2) g/dL 7.6 Albumin (3.4-5.0) g/dL 3.9 Lipase Cancelled 46 Urine Color (Yellow) Yellow Urine Clarity (Clear) Clear Urine pH (5-8) 5.5 Ur Specific [place] (1.005-1.025) 1.020 Urine Protein (Neg-Trace) mg/dL Negative Urine Ketones (Negative) mg/dL Negative Urine Blood (Negative) Negative Urine Nitrite (Negative) Negative Urine Bilirubin (Negative) Negative Urine Urobilinogen (Up to 0.2) mg/dL 0.2 Ur Leukocyte Esterase (Negative) Negative Urine Glucose (Negative) mg/dL Negative Range/Units 08/29/24 13:10 WBC (4.4-10.8) 10^3/uL RBC (3.93-5.22) 10^6/uL Hgb (11.2-15.7) g/dL Hct (36.0-46.0) % MCV (80-95) fL MCH (27.0-33.0) pg MCHC (32.0-36.0) % RDW (11.7-14.6) % Plt Count (130-400) 10^3/uL MPV (8.0-11.0) fL Immature Gran % % Neutrophils % % Lymphocytes % % Monocytes % % Eosinophils % % Basophils % % Nucleated RBC % (0.0-0.3) % Absolute Neutrophils (1.2-6.7) 10^3/uL Absolute Lymphocytes (1.2-3.4) 10^3/uL Absolute Monocytes (0.1-0.8) 10^3/uL Absolute Eosinophils (0.0-0.7) 10^3/uL Absolute Basophils (0.0-0.2) 10^3/uL Sodium (136-145) mmol/L Potassium (3.5-5.1) mmol/L Chloride (98-107) mmol/L Carbon Dioxide (21.0-32.0) mmol/L Anion Gap (3-11) mmol/L BUN (7-18) mg/dL Creatinine (0.55-1.02) mg/dL Est GFR (CKD-EPI 2020) (mL/min/1.73m2) Glucose (74-106) mg/dL Calcium (8.5-10.1) mg/dL Magnesium (1.8-2.4) mg/dL Total Bilirubin (0.2-1.0) mg/dL AST (15-37) U/L ALT (14-59) U/L Alkaline Phosphatase (46-116) U/L Troponin I (<or=51) ng/L < 4 Total Protein (6.4-8.2) g/dL Albumin (3.4-5.0) g/dL Lipase Urine Color (Yellow) Urine Clarity (Clear) Urine pH (5-8) Ur Specific [place] (1.005-1.025) Urine Protein (Neg-Trace) mg/dL Urine Ketones (Negative) mg/dL Urine Blood (Negative) Urine Nitrite (Negative) Urine Bilirubin (Negative) Urine Urobilinogen (Up to 0.2) mg/dL Ur Leukocyte Esterase (Negative) Urine Glucose (Negative) mg/dL POC- Test(urine) Negative Medical Decision Making Laboratory Studies CBC within normal limits. CMP shows mild hypomagnesemia at 1.5. The remainder of labs are reassuring. Urinalysis does not show evidence of acute abnormality. Imaging CT abdomen and pelvis does not show evidence of acute abnormality. Bilateral ovarian cysts noted. Some stool noted in the splenic flexure. Initial Assessment: 49-year-old female presenting with abrupt left upper quadrant pain radiating to her back. No fever, chills, vomiting, urinary symptoms, or chance of . Tenderness in left upper quadrant on palpation without rebound or guarding. Alert and oriented. Differential Diagnosis: - Left upper quadrant pain: Considered due to stool in splenic flexure seen on CT scan. No obvious etiology after radiologist discussion. Plan includes Dulcolax or MiraLAX at home, magnesium supplementation, and follow-up in 24 to 48 hours. - Bilateral ovarian cysts: Identified on CT scan. Encouraged follow-up with primary care physician. - Mild hypomagnesemia: CMP showed mild hypomagnesemia at 1.5. Plan includes magnesium supplementation and prescription for home use. ED Course: - CBC within normal limits. - CMP shows mild hypomagnesemia at 1.5. - Urinalysis does not show evidence of acute abnormality. - CT abdomen and pelvis read by me and radiology, no evidence of acute abnormality, bilateral ovarian cysts, stool in splenic flexure. - Pain improved. - Magnesium supplemented. - Prescription for magnesium provided. - Encouraged Dulcolax or MiraLAX at home. - Return precautions reviewed and patient expressed understanding. Final Assessment: Patient's left upper quadrant pain improved. CT scan showed stool in splenic flexure and bilateral ovarian cysts. Mild hypomagnesemia noted. Treatment includes magnesium supplementation and laxatives. Follow-up in 24 to 48 hours recommended. Clinical Impression: - Left upper quadrant pain - Bilateral ovarian cysts - Mild hypomagnesemia Disposition: - Discharge - Follow-Up: Recheck in 24 to 48 hours. Follow up with primary care physician regarding ovarian cysts. Patient Education: Return precautions reviewed and patient expressed understanding. MDM Components Evaluation: - Number of Differential Diagnoses or Management Options: Left upper quadrant pain, Bilateral ovarian cysts, Mild hypomagnesemia - Amount and Complexity of Data Reviewed: CBC, CMP, Urinalysis, CT abdomen and pelvis - Risk of Complication and Morbidity or Mortality: Low risk based on current findings and treatment plan. 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 [place] (Ac[place]) Confusion (Acute) History of cholecystectomy (Acute) History of esophagogastroduodenoscopy (Acute) History of surgical procedure (Acute) Impacted cerumen of left ear (Acute 05/07/15) Thrombophlebitis of deep femoral vein (Acute) Hepatic adenoma (Acute) 01/02/19 [facility] [place]normal eye finding (Chronic) Vitamin D deficiency (Acute 03/09/15) 02/2015 24.4 ng/ml. Started on supplemental Vit D. Hypothyroidism (Acute 01/21/13) Gastroesophageal reflux disease (Acute) neg. HPylori Essential hypertension (Acute 04/08/13) Diabetes mellitus (Chronic 11/05/12) add jardiance Essential hypertension (Chronic) Diabetes mellitus (Chronic) 02/2017. Working in conjunction with the customer service security officer on activity level and dietary changes. Depression (Chronic 03/13/17) increase wellbutrin to 225 /day Hypercholesterolemia (Chronic) Hypothyroidism (Chronic) Gastroesophageal reflux disease (Chronic) Vitamin D deficiency (Chronic) Temporomandibular joint disorder (Chronic) Postnasal drip (Acute 09/19/16) Obesity (Acute) [place] been [place] [facility] loss counseling. RBC microcytosis (Acute 07/17/13) Depressive disorder (Chronic) Conductive hearing loss in left ear (Chronic 03/03/16) Chronic rhinitis (Chronic 09/19/16) Medical History Dysfunctional uterine bleeding Surgical History Cholecystectomy (06/30/15) DR. YEUNG Colonoscopy - MAC (08/09/13) N/L EGD - IV Sedation (08/09/13) Endometrial Ablation History of resection of liver 04/17/[place] [facility] [place]steroscopy w/ ablation Myomectomy Status post endometrial ablation 2016. menses returned a year later. Family History Father Diabetes PR (myocardial infarction) Heart disease Hyperlipidemia Hypertension Mother Cardiac arrhythmia Brother Depression Diabetes Maternal Grandfather , age 79 Heart disease Hyperlipidemia Hypertension Stroke Paternal Grandfather , age 82 Depression Diabetes Heart disease Hyperlipidemia Hypertension Maternal Grandmother Depression Heart disease Hypertension Stroke Paternal Grandmother , age 79 Depression Diabetes Heart disease Hyperlipidemia Hypertension Stroke Social History Smoking/Tobacco Use Status: Never Second Hand Exposure: Yes Smoking risk assessment performed?: Yes Alcohol Intake: current Alcohol Intake frequency: a few times a month Alcohol type: hard liquor Drug use: Never Substance use type: does not use Adopted: No Caregiver/Support person: No Foster care: No Household members: friend(s) Housing: house Number of Children: 0 Communication Needs: None Do you need help understanding health information?: Rarely 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 Pets and animals: Yes Pets and animals: cat(s) Sexually active: No Do you think of yourself as: straight/heterosexual Current gender identity: female What is your relationship status?: How often do you talk on the phone with friends or family?: three or more times per week How often do you get together with friends or relatives?: once per week How often do you attend yarsani or gnosticist services?: 4 or more times per year Do you belong to any clubs or organized social groups?: no Panel score (0-1 are the most socially isolated patients): 2 What type of physical activity do you participate in: none Frequency: does not exercise Angela/Hinduism: Adventism Special angela needs: No Seatbelt use: always Helmet use: Yes Helmet use: always Drive intox or ride w/intox dedicated local truck driver: No Do you feel safe at home: Yes Do you feel safe in your relationship?: Yes Female Reproductive History Menstrual control method: none History History 0 Para Hx # Term Pregnancies Multiple births Hx # Pregnancies Ectopic pregnancies AB induced Hx Number of Living Children AB spontaneous
== END 2024-08-29 13:46 | disposition home or self-care (01) ==
PROVIDERS: Emergency Provider Physician Assistant; PCP Family Medicine
DX: R10.12 Left upper quadrant pain (principal); E83.42 Hypomagnesemia; E03.9 Hypothyroidism, unspecified; N83.02 Follicular cyst of left ovary; N83.01 Follicular cyst of right ovary; I10 Essential (primary) hypertension; E11.9 Type 2 diabetes mellitus without complications; Z79.84 Long term (current) use of oral hypoglycemic drugs; Z79.85 Long-term (current) use of injectable non-insulin antidiabetic drugs; Z90.49 Acquired absence of other specified parts of digestive tract
CPT/HCPCS: 36415; 80053; 81025; 83690; 99285; 74177; 81003; 83735; 84484; 85025; J3490

== ENCOUNTER 2025-01-13 20:37 | Outpatient (REF) | payer OTHER, SELFPAY ==
[2025-01-13 20:56] LABS: RBC 0-2 HPF (0-2)
[2025-01-13 20:57] LABS: C & S Indicated? Yes
== END 2025-01-13 20:38 | disposition home or self-care (01) ==
LOC: LBN 20:37
PROVIDERS: PCP Family Medicine; Visit Provider Family Medicine
DX: R30.0 Dysuria (principal); B96.29 Other Escherichia coli [E. coli] as the cause of diseases classified elsewhere
CPT/HCPCS: 87077; 81003; 81015; 87086; 87186

== ENCOUNTER 2025-03-12 02:16 | Outpatient (CLI) | payer OTHER, SELFPAY ==
[2025-03-12 11:23] LABS: ALT 56 U/L (14-59); AST 31 U/L (15-37); Albumin 3.8 g/dL (3.4-5.0); Alkaline Phosphatase 86 U/L (46-116); Bilirubin, Total 0.4 mg/dL (0.2-1.0); Total Protein 7.7 g/dL (6.4-8.2)
[2025-03-12 11:33] LABS: Bilirubin, Direct 0.1 mg/dL (0.0-0.2)
== END 2025-03-12 02:17 | disposition home or self-care (01) ==
LOC: LBO 02:16
PROVIDERS: PCP Family Medicine; Visit Provider Internal Medicine
DX: K74.3 Primary biliary cirrhosis (principal)
CPT/HCPCS: 36415; 80076

== ENCOUNTER 2025-05-29 09:27 | Outpatient (REF) | payer OTHER, SELFPAY ==
[2025-05-29 17:23] LABS: Microalb ug/mg Crea 3.3 ug/mg Cr
== END 2025-05-29 09:28 | disposition home or self-care (01) ==
LOC: LBN 09:27
PROVIDERS: PCP Family Medicine; Visit Provider Family Medicine
DX: E11.9 Type 2 diabetes mellitus without complications (principal)
CPT/HCPCS: 82043; 82570